=== PATIENT | female | born 1935 | race Caucasian/White ===

== ENCOUNTER 2016-08-17 10:31 | Outpatient (CLI) | payer MEDICARE, OTHER | END 2016-08-17 10:33 | LOC: LABRHC 10:31 | PROVIDERS: ATTEND Physician Assistant | DX: R82.90 Unspecified abnormal findings in urine (principal) | CPT/HCPCS: 87086 ==

== ENCOUNTER 2017-03-07 15:08 | Outpatient (CLI) | payer MEDICARE, OTHER ==
[2017-03-07 15:30] LABS: BASOPHILS % 1.3 (0.0-1.5); MEAN CORPUSCULAR HEMOGLOBIN 29.2 pg (28.0-34.0); MEAN CORPUSCULAR VOLUME 84.4 fl (80.0-100.0); NEUTROPHILS # 4.6 # k/uL (1.4-7.7)
[2017-03-07 15:55] LABS: eGFR (African) > 60; eGFR (Non-African) > 60
== END 2017-03-07 15:10 ==
LOC: LAB 15:08
PROVIDERS: ATTEND Family Medicine
DX: E03.9 Hypothyroidism, unspecified (principal); D53.9 Nutritional anemia, unspecified; Z51.81 Encounter for therapeutic drug level monitoring
CPT/HCPCS: 36415; 80053; 82607; 82746; 84439; 84443; 84481; 85025

== ENCOUNTER 2017-03-29 08:49 | Outpatient (CLI) | payer MEDICARE, OTHER ==
--- NOTE | 2017-03-29 11:19 | Diagnostic Imaging Report ---
JESI MOORE~ [facility] [address] [address] [place], [place]. [address] ~ ~ ~ ~ Report Submission Date: Mar 29, 2017 9:57:16 AM CDT Patient ~ Study Name: ROMA CARDONA ~ Date: Mar 29, 2017 9:16:24 AM CDT ~ Modality Type: CT\SR Gender: M ~ Description: CT ABD & PELVIS W/ CON : 37 ~ Institution: [facility] Physician: EJSI MOORE ~ ~ ~ ~ HISTORY: ~82-year-old female with hyperbilirubinemia, elevated transaminases. COMPARISON: None available. TECHNIQUE: ~Helical CT images of the abdomen and pelvis were performed with 81 ml Omnipaque IV contrast. ~Sagittal and coronal reformatted images were obtained. FINDINGS: CT abdomen: ~There are partially visualized bilateral breast implants. ~The lung bases are clear. ~There is a paraesophageal hiatal hernia measuring up to 8.2 cm transverse, with estimated 1/3 of the stomach intrathoracic. ~The liver likely diffusely fatty infiltrated. ~No intrahepatic biliary ductal dilatation or suspicious liver mass. ~The gallbladder is surgically absent. ~There is a left upper quadrant splenule. ~The spleen, pancreas, kidneys, and adrenal glands are unremarkable. ~No abdominal aortic aneurysm. ~ CT pelvis: ~No abnormal bowel dilatation, free air, free fluid, or suspicious adenopathy. ~There is fecal retention in the proximal colon. ~There is sigmoid colon diverticulosis without evidence of acute diverticulitis. ~The appendix is normal in appearance. ~The urinary bladder is decompressed. ~There is a calcification in the uterine myometrium. ~There is fat stranding in the region of the left inguinal canal (images [id number], series 2). ~There is advanced lumbar degenerative disc disease and moderate lumbar facet arthropathy. ~There is mild lumbar dextroscoliosis. ~There are mild degenerative changes of the hips. IMPRESSION: 1. ~Probable diffuse fatty infiltration of the liver. ~No intrahepatic biliary ductal dilatation or suspicious liver mass. 2. ~Postoperative changes of cholecystectomy. 3. ~Sigmoid colon diverticulosis without evidence of acute diverticulitis. 4. ~Fecal retention in the colon suggestive of constipation. 5. ~Moderate to large paraesophageal hiatal hernia with estimated 1/3 of the stomach intrathoracic. 6. ~Fat stranding in the region of the left inguinal canal may be related to prior inguinal herniorrhaphy or prior inflammation related to fatty indirect inguinal hernia. 7. ~Lumbar degenerative disc disease and facet arthropathy. 8. ~No evidence of bowel obstruction, acute appendicitis, or other acute process in the abdomen or pelvis. ~ Electronically signed on Mar 29, 2017 9:57:16 AM CDT by: Jenaro SALGADO
== END 2017-03-29 08:50 ==
LOC: RAD 08:49
PROVIDERS: ATTEND Family Medicine
DX: E80.6 Other disorders of bilirubin metabolism (principal); R74.0 Nonspecific elevation of levels of transaminase and lactic acid dehydrogenase [LDH]
CPT/HCPCS: 74177; Q9966

== ENCOUNTER 2017-09-18 09:49 | Outpatient (CLI) | payer MEDICARE, OTHER ==
[2017-09-18 10:05] LABS: BASOPHILS % 0.7 (0.0-1.5); EOSINOPHILS % 4.1 % (0.0-6.8); MEAN CORPUSCULAR VOLUME 85.9 fl (80.0-100.0); MONOCYTES % 6.6 % (0.0-11.0); NEUTROPHILS # 3.6 # k/uL (1.4-7.7)
[2017-09-18 11:11] LABS: eGFR (African) > 60; eGFR (Non-African) > 60
== END 2017-09-18 09:50 ==
LOC: LAB 09:49
PROVIDERS: ATTEND Family Medicine
DX: E03.9 Hypothyroidism, unspecified (principal); R74.0 Nonspecific elevation of levels of transaminase and lactic acid dehydrogenase [LDH]; Z51.81 Encounter for therapeutic drug level monitoring
CPT/HCPCS: 36415; 80053; 84443; 85025

== ENCOUNTER 2017-11-09 14:06 | Outpatient (CLI) | payer MEDICARE, OTHER | END 2017-11-09 14:08 | LOC: LAB 14:06 | PROVIDERS: ATTEND Family Medicine | DX: E03.9 Hypothyroidism, unspecified (principal) | CPT/HCPCS: 36415; 84443 ==

== ENCOUNTER 2018-04-26 16:29 | Outpatient (CLI) | payer MEDICARE, OTHER | END 2018-04-26 16:35 | LOC: LABRHC 16:29 | PROVIDERS: ATTEND Family Medicine | DX: N39.0 Urinary tract infection, site not specified (principal) | CPT/HCPCS: 87086 ==